=== PATIENT | female | born 1985 | race Caucasian/White ===

== ENCOUNTER 2023-07-31 13:01 | Outpatient (AMB) | payer BC, SELFPAY ==
--- NOTE | 2023-07-31 13:24 | MHC.PC.OV ---
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 Transferring from [facility]. Patient recently started by dental front office assistant on Paxil-has been on for the past month. Tolerating the medication well. Is feeling more even keeled, more calm but also has changed her job since the start is in a better work environment. Follows with Audi Valero dental front office assistant at [facility]. 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 1. Little interest or pleasure in doing things: not at all 2. Feeling down, depressed, or hopeless: not at all 3. Trouble falling or staying asleep, or sleeping too much: nearly every day 4. Feeling tired or having little energy: more than half the days 5. Poor appetite or overeating: nearly every day 6. Feeling bad about yourself - or that you are a failure or have let yourself or your family down: several days 7. Trouble concentrating on things, such as reading the newspaper or watching television: more than half the days 8. Moving or speaking so slowly that other people could have noticed. Or the opposite - being so fidgety or restless that you have been moving around a lot more than usual: several days 9. Thoughts that you would be better off or of hurting yourself in some way: not at all Total score: 12 Depression Screening Interpretation: Positive Depression Screening Follow-up: Existing condition Depression Screening Done: Yes 00351 - PHQ-9 Billing: Yes Source: Developed by Drs. Mando Christopher, Yasmin Najera, Ignacio Farias and colleagues, with an educational sonam from [employer]. Thrive Questionnaire Date Thrive assessed: 07/31/23 I am a: Patient What is your living situation today?: I have a steady place to live Within the past 12 months, did the food you bought not last and you didn't have the money to get more?: Never true Within the past 12 months, did you worry whether your food would run out before you got money to buy more?: Never true Do you have trouble paying for medicines?: No Do you have trouble getting transportation to medical appointments?: No Do you have trouble paying your heating and electricity bill?: No Do you have trouble taking care of your child, family member or friend?: No Do you have trouble with day-to-day activities such as bathing, preparing meals, shopping, managing finances, etc.?: No Are you currently unemployed and looking for a job?: No Are you interested in more education?: No Please select the resources that you would like help with: None Currently or been in a relationship where the following occur: no concerns reported THRIVE Score: 0 AUDIT C Alcohol Use Questionnaire (AUDIT-C) 1. How often do you have a drink containing alcohol?: Monthly or less 2. How many drinks containing alcohol do you have on a typical day when you are drinking?: 1 or 2 3. How often do you have six or more drinks on one occasion?: Never Total Score: 1 GENESIS-7 AMB Questionnaire GENESIS-7 Date GENESIS - 7 assessed: 07/31/23 Feeling nervous, anxious, or on edge: 2 = More than half the days Not being able to stop or control worryin = More than half the days Worrying too much about different things: 2 = More than half the days Trouble relaxin = More than half the days Being so restless that it is hard to sit still: 2 = More than half the days Becoming easily annoyed or irritable: 1 = Several days Feeling afraid as if something awful might happen: 0 = Not at all Total GENESIS-7 score (0-4 normal; 5-9 mild; 10-14 moderate; 15-21 severe): 11 Source: Developed by Drs. Mando Christopher, Yasmin Najera, Ignacio Farias and colleagues, with an educational sonam from [employer]. GENESIS-7 Assessment Billing GENESIS-7 Assessment Tool: GENESIS-7 Assessment 53148 Review of Systems Const Details: ROS CONSTITUTIONAL: Denies weight loss, fever and chills. HEENT: Denies changes in vision and hearing. RESPIRATORY: Denies SOB and cough. CV: Denies palpitations and CP GI: Denies abdominal pain, nausea, vomiting and diarrhea. : Denies dysuria and urinary frequency. MSK: Denies new myalgia and joint pain. SKIN: skin tags, nevi NEUROLOGICAL: Denies headache PSYCHIATRIC: see HPI Physical exam (Primary Care) Vital Signs: Last Vital Signs Temp 98.3 F 07/31/23 13:25 Pulse 70 07/31/23 13:25 Resp 12 07/31/23 13:25 BP 108/82 07/31/23 13:25 Pulse Ox 100 07/31/23 13:25 Oxygen Delivery Method Room Air 07/31/23 13:25 PHYSICAL EXAM: GENERAL: Alert and oriented x 3. NAD EYES: EOMI. Anicteric. HENT: Moist mucous membranes. . LUNGS: Clear to auscultation bilaterally. CARDIOVASCULAR: Regular rate and rhythm. No murmur. No JVD. ABDOMEN: Soft, non-tender +bs EXTREMITIES: No edema. Non-tender. SKIN: Scattered AK, skin tags NEUROLOGIC: No focal neurological deficits. PSYCHIATRIC: Cooperative. Appropriate mood and affect BMI result Body Mass Index 36.2 Tobacco/Smoking Status: Tobacco use Status Tobacco use date assessed 07/31/23 07/31/23 13:30 Patient Tobacco Use Status Former Tobacco user 07/31/23 13:30 e-Cigarette/Vaping Use Never Used 07/31/23 13:30 PHQ-9: PHQ-9 Score PHQ-9: Total score 12 07/31/23 16:32 Depression Screening Interpretation: Positive Depression Screening Follow-up: Existing condition Thrive Assessment: Date of Thrive Assessment Date Thrive assessed 07/31/23 07/31/23 15:28 Currently or been in a relationship where the following occur: no concerns reported Immunizations Adacel(Tdap Adolesn/Adult)(PF) 2 Lf-(2.5-5-3-5)-5 Lf/0.5 mL IM syringe Performing Provider: Brissa Keller MD Performing [facility] Administered by: Charlotte Moise CMA on 07/31/23 16:32 Dose Route Admin Location Dispensed Lot Number Expiration Date NDC Marketing Support Assistant 0.5 mL IM Left Deltoid 0.5 mL [id number] 10/16/25 24727-445-38 Plexxi VIS Given Date VIS Provided VIS Publication Date 07/31/23 Single Vaccine 20 Eligibility Eligibility Date Funding Source Not [facility] Eligible 07/31/23 Private Assessment and Plan Assessment & Plan (1) Encounter to establish care: Code(s): Z76.89 - Persons encountering health services in other specified circumstances Plan: 38 year old female presenting to establish care. Past medical, surgical, social and family history reviewed (2) Anxiety: Comment: improving on paxil Code(s): F41.9 - Anxiety disorder, unspecified (3) Claudia-menopausal: Code(s): N95.1 - Menopausal and female climacteric states (4) Weight gain: Comment: Check TSH. She would like to trial GLP which appears to be covered by insurance Code(s): R63.5 - Abnormal weight gain Orders: Orders Comprehensive Met. Panel 07/31/23 F41.9 - Anxiety disorder, unspecified, R63.5 - Abnormal weight gain, Z13.0 - Encounter for screening for diseases of the blood and blood-forming organs and certain disorders involving the immune mechanism, Z13.220 - Encounter for screening for lipoid disorders, Z13.228 - Encounter for screening for other metabolic disorders TSH reflex Free T4 07/31/23 F41.9 - Anxiety disorder, unspecified, R63.5 - Abnormal weight gain, Z13.0 - Encounter for screening for diseases of the blood and blood-forming organs and certain disorders involving the immune mechanism, Z13.220 - Encounter for screening for lipoid disorders, Z13.228 - Encounter for screening for other metabolic disorders Complete Blood Count Auto Diff 07/31/23 F41.9 - Anxiety disorder, unspecified, R63.5 - Abnormal weight gain, Z13.0 - Encounter for screening for diseases of the blood and blood-forming organs and certain disorders involving the immune mechanism, Z13.220 - Encounter for screening for lipoid disorders, Z13.228 - Encounter for screening for other metabolic disorders Lipid Panel 07/31/23 F41.9 - Anxiety disorder, unspecified, R63.5 - Abnormal weight gain, Z13.0 - Encounter for screening for diseases of the blood and blood-forming organs and certain disorders involving the immune mechanism, Z13.220 - Encounter for screening for lipoid disorders, Z13.228 - Encounter for screening for other metabolic disorders TDaP Immunization 07/31/23 Z23 - Encounter for immunization Referrals LOG HAUL OPERATOR Referral N95.1 - Menopausal and female climacteric states, R63.5 - Abnormal weight gain Dermatology Referral L98.9 - Disorder of the skin and subcutaneous tissue, unspecified Medications: New semaglutide (weight loss) (Arturo) administer weeks 5 through 8 of therapy 0.5 mg (0.5 mL) subcut QWEEK 2 mL 0RF 4 weeks ondansetron HCl 4 mg PO Q8H PRN 30 tabs 1RF nausea and vomiting 30 days Coding Level of Care Code New Pt Level 4 (15091) Complex EM visit Add On G2211 Diagnoses Encounter to establish care Z76.89 Anxiety F41.9 Claudia-menopausal N95.1 Weight gain R63.5 Additional Codes GENESIS-7 Assessment Billing - GENESIS-7 Assessment Tool: GENESIS-7 Assessment 16189 ([id number])
[2023-07-31 13:25] VITALS: BP 108/82; PULSE 70; RESP 12; TEMP 36.8; O2SAT 100; BMI 36.2
== END 2023-07-31 14:27 | disposition home or self-care (01) ==
PROVIDERS: Visit Provider Internal Medicine
DX: R63.5 Abnormal weight gain (principal); F41.9 Anxiety disorder, unspecified; Z76.89 Persons encountering health services in other specified circumstances; N95.1 Menopausal and female climacteric states
CPT/HCPCS: 90471; 90715; 99204

== ENCOUNTER 2024-07-28 08:24 | Outpatient (AMB) | payer BC, SELFPAY ==
--- NOTE | 2024-07-28 08:27 | MHC.PC.OV ---
Vital Signs 07/28/24 08:29 Height 5 ft 3.39 in Weight 207 lb 8 oz BMI 36.3 BP 106/64 Blood Pressure Location Lt brachial Position Sitting Respiration 14 Pulse 63 Pulse Source Pulse Oximeter Pulse Oximetry (%) 98 Oxygen Delivery Method Room Air Intake Visit Reasons: annual Allergies No Known Allergies Allergy (Verified 07/28/24 08:30) Tobacco use date assessed: 07/28/24 Dental Screening Dental Screen Date: 07/28/24 Did you have a dental visit in the last 12 months?: Yes Did you have a dental problem in the last 6 months where you did not have access to dental care?: No Was dental information given to patient?: Patient has dentist HPI HPI Comments History of Present Illness Details The patient is a 39 year old female with a past medical history of anxiety presenting for annual exam BH: On Paxil. Continues to do well with the medication. Dad at the end of 2023. Was on wegovy. Was doing well with weight loss but a lot of stressors and despite exercise and diet she has gained weight off the medication HS: Goes to dermatology in [place] at [employer]. Was on doxy/minocycline for some time. Has topical and hibiclens. Follows with Audi Valero ob/gyn physician at [facility]. Upcoming visit Isabel HATHAWAY. U/S q6 months for the next 2 years. May and Nov ROS CONSTITUTIONAL: Denies weight loss, fever and chills. HEENT: Denies changes in vision and hearing. RESPIRATORY: Denies SOB and cough. CV: Denies palpitations and CP GI: Denies abdominal pain, nausea, vomiting and diarrhea. : Denies dysuria and urinary frequency. MSK: Denies new myalgia and joint pain. SKIN: Denies rash and pruritus. NEUROLOGICAL: Denies headache PSYCHIATRIC: Denies recent changes in mood. PHYSICAL EXAM: GENERAL: Alert and oriented x 3. NAD EYES: EOMI. Anicteric. HENT: Moist mucous membranes. No scleral icterus. No cervical lymphadenopathy. LUNGS: Clear to auscultation bilaterally. CARDIOVASCULAR: Regular rate and rhythm. No murmur. No JVD. ABDOMEN: Soft, non-tender +bs EXTREMITIES: No edema. Non-tender. SKIN: No rashes or lesions. Warm. NEUROLOGIC: No focal neurological deficits. CN II-XII grossly intact PSYCHIATRIC: Cooperative. 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 1. Little interest or pleasure in doing things: not at all 2. Feeling down, depressed, or hopeless: not at all 3. Trouble falling or staying asleep, or sleeping too much: several days 4. Feeling tired or having little energy: more than half the days 5. Poor appetite or overeating: more than half the days 6. Feeling bad about yourself - or that you are a failure or have let yourself or your family down: several days 7. Trouble concentrating on things, such as reading the newspaper or watching television: several days 8. Moving or speaking so slowly that other people could have noticed. Or the opposite - being so fidgety or restless that you have been moving around a lot more than usual: not at all 9. Thoughts that you would be better off or of hurting yourself in some way: not at all Total score: 7 Depression Screening Interpretation: Positive Depression Screening Done: Yes 20830 - PHQ-9 Billing: Yes Source: Developed by Drs. Mando Christopher, Yasmin Najera, Ignacio Farias and colleagues, with an educational sonam from [email or web address]. Thrive Questionnaire Date Thrive assessed: 07/21/24 I am a: Patient What is your living situation today?: I have a steady place to live Within the past 12 months, did the food you bought not last and you didn't have the money to get more?: Never true Within the past 12 months, did you worry whether your food would run out before you got money to buy more?: Never true Do you have trouble paying for medicines?: No Do you have trouble getting transportation to medical appointments?: No Do you have trouble paying your heating and electricity bill?: No Do you have trouble taking care of your child, family member or friend?: No Do you have trouble with day-to-day activities such as bathing, preparing meals, shopping, managing finances, etc.?: No Are you currently unemployed and looking for a job?: No Are you interested in more education?: No Please select the resources that you would like help with: None Currently or been in a relationship where the following occur: No concerns reported THRIVE Score: 0 AUDIT C Alcohol Use Questionnaire (AUDIT-C) 1. How often do you have a drink containing alcohol?: Monthly or less 2. How many drinks containing alcohol do you have on a typical day when you are drinking?: 1 or 2 3. How often do you have six or more drinks on one occasion?: Never Total Score: 1 GENESIS-7 AMB Questionnaire GENESIS-7 Date GENESIS - 7 assessed: 07/28/24 Feeling nervous, anxious, or on edge: 1 = Several days Not being able to stop or control worryin = Several days Worrying too much about different things: 2 = More than half the days Trouble relaxin = More than half the days Being so restless that it is hard to sit still: 1 = Several days Becoming easily annoyed or irritable: 2 = More than half the days Feeling afraid as if something awful might happen: 0 = Not at all Total GENESIS-7 score (0-4 normal; 5-9 mild; 10-14 moderate; 15-21 severe): 9 Source: Developed by Drs. Mando Christopher, Yasmin Najera, Ignacio Farias and colleagues, with an educational sonam from [email or web address]. GENESIS-7 Assessment Billing GENESIS-7 Assessment Tool: GENESIS-7 Assessment 00003 Physical exam (Primary Care) Vital Signs: Last Vital Signs Pulse 63 07/28/24 08:29 Resp 14 07/28/24 08:29 BP 106/64 07/28/24 08:29 Pulse Ox 98 07/28/24 08:29 Oxygen Delivery Method Room Air 07/28/24 08:29 BMI result Body Mass Index 36.3 Tobacco/Smoking Status: Tobacco use Status Tobacco use date assessed 07/28/24 07/28/24 08:35 Patient Tobacco Use Status Former Tobacco user 07/28/24 08:35 e-Cigarette/Vaping Use Never Used 07/28/24 08:35 PHQ-9: PHQ-9 Score PHQ-9: Total score 7 07/28/24 08:46 Depression Screening Interpretation: Positive Thrive Assessment: Date of Thrive Assessment Date Thrive assessed 07/21/24 07/28/24 08:28 Currently or been in a relationship where the following occur: No concerns reported Immunizations Boostrix Tdap 2.5 Lf unit-8 mcg-5 Lf/0.5 mL intramuscular syringe Performing Provider: Brissa Keller MD Performing Location[facility] Administered by: Charlotte Moise CMA on 07/28/24 09:25 Dose Route Admin Location Dispensed Lot Number Expiration Date NDC Storage Garage Manager 0.5 mL IM Left Deltoid 0.5 mL [id number] 08/22/26 11437-422-29 Be[employer] VIS Given Date VIS Provided VIS Publication Date 07/28/24 Single Vaccine 20 Eligibility Eligibility Date Funding Source Not [facility] Eligible 07/28/24 Private Coding Level of Care Code Est Pt Prev Care 40-64y(51952) Diagnoses Physical exam Z00.00 Hidradenitis suppurativa L73.2 Obesity (BMI 35.0-39.9 without comorbidity) E66.9 Additional Codes GENESIS-7 Assessment Billing - GENESIS-7 Assessment Tool: GENESIS-7 Assessment 91084 ([id number]) PHQ-9 - 35714 - PHQ-9 Billing: Yes ([id number]) Assessment & Plan Assessment & Plan (1) Physical exam: Code(s): Z00.00 - Encounter for general adult medical examination without abnormal findings Category: Medical (2) Hidradenitis suppurativa: Code(s): L73.2 - Hidradenitis suppurativa Category: Medical (3) Obesity (BMI 35.0-39.9 without comorbidity): Code(s): E66.9 - Obesity, unspecified Category: Medical Plan 39 y/o for CPE Interval history reviewed Preventive measures for age discussed Obesity, HS-restart wegovy with dose increase Labs pending Medications: New Wegovy (semaglutide (weight loss)) 1 mg (0.5 mL) subcut QWEEK 6 mL 3RF NS E66.9 - Obesity, unspecified, L73.2 - Hidradenitis suppurativa Discontinued Wegovy (semaglutide (weight loss)) Discontinued Reason: Doctor's Order 0.5 mg (0.5 mL) subcut QWEEK 12 weeks 6 mL 3RF NS E66.9 - Obesity, unspecified, R63.5 - Abnormal weight gain
[2024-07-28 08:29] VITALS: BP 106/64; PULSE 63; RESP 14; O2SAT 98; BMI 36.3
--- OUTSIDE RECORDS SUMMARY | 2024-07-28 08:31 | XMS_ITS | Clinical Summary ---
Author Organization [facility] [address] [place] [address] [place] [phone] Phone Care Team Providers Care National Sales Trainer Name Role Phone Unavailable Primary Care Provider Unavailabl e Surgical History Surgery Date Site/Laterality Comments WISDOM TOOTH EXTRACTION PROCEDURE: HISTORICAL WISDOM TEETH EXTRACTION OTHER SURGICAL HISTORY 08/2016 PROCEDURE: SKIN EXCISION Medical History Medical History Date Comments Anxiety DX:Anxiety Family History Medical History Relation Name Comments Diabetes Maternal Grandfather Diabetes Paternal Grandfather Breast cancer Neg Hx Colon cancer Neg Hx Ovarian cancer Neg Hx Prostate cancer Neg Hx Uterine cancer Neg Hx Relation Name Status Comments Brother 1 Alive step bro Brother 2 Alive step bro Daughter 1 Alive Daughter 2 Alive Father Alive Maternal Grandfather Alive Maternal Grandmother Alive Mother Alive Paternal Grandfather diabete s Paternal Grandmother Alive Sister Alive Social History Tobacco Use Types Packs/Day Years Used Date Smoking Tobacco: Former Smokeless Tobacco: Never Alcohol Use Standard Drinks/Week Comments Not Currently 0 (1 standard drink = 0.6 oz pur e alcohol) Comments Unknown Sex and Gender Information Value Date Recorded Sex Assigned at Not on file Legal Sex Female 7:19 AM EST Gender Identity Not on file Sexual Orientation Not on file Obstetrics History Last Filed Vital Signs Vital Sign Reading Time Taken Comments Blood Pressure 106/68 06/12/2023 11:00 AM EDT Pulse 66 06/12/2023 11:00 AM EDT Temperature - - Respiratory Rate - - Oxygen Saturation - - Inhaled Oxygen Concentration - - Weight 93.4 kg (205 lb 14.4 oz) 024 11:00 AM EDT Height 162.6 cm (5' 4 ) 06/12/2023 11:0 0 AM EDT Body Mass Index 35.34 06/12/2023 11:00 AM EDT Plan of Treatment Upcoming Encounters Date Type Department Care Team (Late st Contact Info) Description 09/25/2024 1:30 PM EDT Office Visit Obstetrics and Gynecology - [place] [address] [place] [phone] Audi Valero, [facility] [address] [place] [phone] 10/21/2024 10:40 AM EDT Appointment Radiology Department - [address] [phone] 10/21/2024 10:55 AM EDT Appointment Radiology Department - [address] [phone] Health Maintenance Due Date Last Done Comments Hepatitis B Vaccines (1 of 3 - 19+ 3-dose series) 2002 Cervical Cancer Screening: HPV 02/21/2004 Depression Screening 02/11/2022 HIV Screening 02/11/2022 Hepatitis C Screening 02/11/2022 Social Influencers of Health Screening 02/11/2022 COVID-19 Vaccine ( season) 2023 03/31/2022, 03/17/2021, 07/06/2020, Additional history exists Influenza Vaccine (Season Ended) 2024 11/23/2020 DTaP,Tdap,and Td Vaccines (2 - Td or Tdap) 07/03/2025 07/04/2015 Breast Cancer Screening 10/20/2025 10/21/19 24, 10/21/2023, 10/14/2023, Additional history exists HIB Vaccines Aged Out No longer eligi ble based on patient's age to complete this topic HPV Vaccines Aged Out No longer eligi ble based on patient's age to complete this topic Hepatitis A Vaccines Aged Out No long er eligible based on patient's age to complete this topic IPV Vaccines Aged Out No longer eligi ble based on patient's age to complete this topic MMR Vaccines Aged Out No longer eligi ble based on patient's age to complete this topic Meningococcal ACWY Vaccine Aged Out N o longer eligible based on patient's age to complete this topic Meningococcal B Vaccine Aged Out No l onger eligible based on patient's age to complete this topic Pneumococcal Vaccine: Pediatrics (0 to 5 Years) and At-Risk Patients (6 to 64 Years) Aged Out No longer eligible based on patient's age to complete this topic RSV Immunization Patients Under 20 months Aged Out No longer eligible based on patient's age to complete this topic Varicella Vaccines Aged Out No longer eligible based on patient's age to complete this topic Procedures Procedure Name Priority Date/Time Associated Diagnosis Comments DIAGNOSTIC MAMMOGRAPHY WITH CAD UNILATERAL Routine 10/21/2023 2:12 PM EDT Other abnormal and inconclusive findings on diagnostic imaging of breast from Last 3 Months or Most Recently Relevant to Health Maintenance Results * DIAGNOSTIC MAMMOGRAPHY WITH CAD UNILATERAL (10/21/2023 2:12 PM EDT) Anatomical Region Laterality Modality Mammography 10/15/2023 10:4 1 AM EDT Narrative 10/21/2023 3:12 PM EDT This is a summary report. The complete report is available in the patient's medical record. If you cannot access the medical record, please contact the sending organization for a detailed fax or copy. Exam: Unilateral right digital diagnostic mammogram and right breast ultrasound. History: Call back Findings: Patient is recalled from a screening mammogram performed 10/14/2023 for additional imaging on the right. 90 ML and spot compression MLO and CC views performed with tomosynthesis. The asymmetry in the posterior upper breast on the MLO view does not persist. ??The asymmetry in the outer breast on the CC view persists and appears to have a correlate on the MLO projection which measures 4 mm and appear circumscribed. Targeted sonography subsequently performed in the upper outer breast. ??0.4 x 0.4 x 0.2 cm anechoic to hypoechoic lesion at the 10 o'clock position, 5 cm from the nipple. ??This appears to correspond with the mammographic abnormality. ??No vascularity in the lesion on color Doppler. ??This could represent a benign cyst which cannot be resolved as such due to its posterior position or a minimally complicated cyst. ??6-month follow-up ultrasound recommended. Impression: Recommend 6-month follow-up ultrasound for a probably benign cystic lesion at the 10 o'clock position of the right breast. BI-RADS 3-probably benign Procedure Note Luli Kidd MD - 12/25/2023 This is a summary report. The complete report is available in thepatient's medical record. If you cannot access the medical record, pleasecontact the sending organization for a detailed fax or copy. Exam: Unilateral right digital diagnostic mammogram and right breastultrasound. History: Call back Findings: Patient is recalled from a screening mammogram performed10/14/2023 for additional imaging on the right. 90 ML and spot compression MLO and CC views performed with tomosynthesis.The asymmetry in the posterior upper breast on the MLO view does notpersist. The asymmetry in the outer breast on the CC view persists andappears to have a correlate on the MLO projection which measures 4 mm andappear circumscribed. Targeted sonography subsequently performed in the upper outer breast. 0.4x 0.4 x 0.2 cm anechoic to hypoechoic lesion at the 10 o'clock position, 5cm from the nipple. This appears to correspond with the mammographicabnormality. No vascularity in the lesion on color Doppler. This couldrepresent a benign cyst which cannot be resolved as such due to itsposterior position or a minimally complicated cyst. 6-month follow-upultrasound recommended. Impression: Recommend 6-month follow-up ultrasound for a probably benign cystic lesionat the 10 o'clock position of the right breast. BI-RADS 3-probably benign Audi Valero [facility] IMG BI PROCEDURES Final Result from Last 3 Months or Most Recently Relevant to Health Maintenance Insurance [facility]
== END 2024-07-28 09:14 | disposition home or self-care (01) ==
LOC: HO.HMCFM 08:24
PROVIDERS: PCP Internal Medicine; Visit Provider Internal Medicine
DX: Z00.00 Encounter for general adult medical examination without abnormal findings (principal); L73.2 Hidradenitis suppurativa; E66.9 Obesity, unspecified; Z68.36 Body mass index [BMI] 36.0-36.9, adult; Z23 Encounter for immunization

== ENCOUNTER → 2024-07-28 08:24 | Outpatient (BNVA) | payer BC, SELFPAY | PROVIDERS: PCP Internal Medicine; Visit Provider Internal Medicine | DX: Z00.00 Encounter for general adult medical examination without abnormal findings (principal); Z23 Encounter for immunization; L73.2 Hidradenitis suppurativa; E66.9 Obesity, unspecified; Z68.36 Body mass index [BMI] 36.0-36.9, adult | CPT/HCPCS: 90471; 90715; 96127 ==

== ENCOUNTER 2024-07-28 09:16 | Outpatient (REF) | payer BC, SELFPAY ==
--- OUTSIDE RECORDS SUMMARY | 2024-07-28 10:02 | XMS_ITS | Clinical Summary ---
Author Organization [facility] [place] [address] [place] [address] [place] [phone] Phone Care Team Providers Care Bond Underwriter Name Role Phone Unavailable Primary Care Provider [...] EDT Office Visit Obstetrics and Gynecology - [place] [address] [place] [phone] Audi Valero, [facility] [address] [place] [phone] 10/21/2024 10:40 AM EDT Appointment Radiology Department - [address] [phone] 10/21/2024 10:55 AM EDT Appointment Radiology Department - [address] [phone] Health Maintenance Due Date Last Done Comments [...] right breast. BI-RADS 3-probably benign Audi Valero [facility] IMG BI PROCEDURES Final Result from Last 3 Months or Most Recently Relevant to Health Maintenance Insurance [facility]
[2024-07-28 11:26] LABS: MANUAL DIFF FLAG NO
[2024-07-28 11:58] LABS: Basophils Percent Auto 0.6 % (0-2); Eosinophils Absolute Auto 0.1 X10*3/uL (0.0-0.4); Eosinophils Percent Auto 1.6 % (0-4); Hematocrit 39.9 % (37.0-47.0); Hemoglobin 13.3 g/dl (12.0-16.0); Imm Gran Abs Auto 0.01 X10*3/uL (0.00-0.03); Imm Gran Pct Auto 0.2 % (0.0-0.4); Lymphocytes Absolute Auto 1.5 X10*3/uL (1.2-4.9); Mean Corpuscular HGB Conc 33.3 g/dl (31.0-35.0); Mean Corpuscular Hemoglobin 30.6 pg (27.0-33.0); Mean Corpuscular Volume 91.7 fL (80.0-98.0); Mean Platelet Volume 9.9 fL (9.4-12.3); Monocytes Absolute Auto 0.5 X10*3/uL (0.1-1.2); Monocytes Percent Auto 9.1 % (2-11); Neutrophils Absolute Auto 2.9 x10*3/uL (2.0-8.3); Neutrophils Percent Auto 58.5 % (45-73); Platelet Count 264 X10*3/uL (160-400); Red Blood Count 4.35 X10*6/uL (4.20-5.50); Red Cell Distribution Width 11.9 % (11.0-16.0)
[2024-07-28 12:18] LABS: Alanine Aminotransferase 18 U/L (0-31); Albumin Level 4.1 g/dL (3.5-5.0); Alkaline Phosphatase 61 U/L (39-117); Anion Gap 10 (12-20); Aspartate Amino Transferase 26 U/L (5-31); Bilirubin Total 0.5 mg/dL (0.0-1.0); Blood Urea Nitrogen 11 mg/dL (9-16); Calcium 8.8 mg/dL (8.4-10.2); Carbon Dioxide 26 mmol/L (22-29); Chloride 105 mmol/L (96-108); Cholesterol 163 mg/dL (<200); Estimated Glomerular Filt Rate > 60; Glucose Random 93 mg/dL (60-115); HDL Cholesterol 48 mg/dL (>40); LDL Cholesterol Calculated 101 mg/dL (<100); Potassium 3.9 mmol/L (3.3-5.1); Sodium 137 mmol/L (135-145); Triglycerides 72 mg/dL (<150)
[2024-07-28 12:37] LABS: TSH reflex Free T4 2.42 uIU/mL (0.32-4.0)
== END 2024-07-28 09:17 | disposition home or self-care (01) ==
LOC: HO.WFDLDS 09:16
PROVIDERS: Visit Provider Internal Medicine
DX: R63.5 Abnormal weight gain (principal); F41.9 Anxiety disorder, unspecified; Z13.220 Encounter for screening for lipoid disorders; Z13.0 Encounter for screening for diseases of the blood and blood-forming organs and certain disorders involving the immune mechanism; Z13.228 Encounter for screening for other metabolic disorders
CPT/HCPCS: 36415; 80053; 80061; 84443; 85025